=== PATIENT | female | born 1955 | race Caucasian/White ===

== ENCOUNTER 2017-12-04 08:57 | Day surgery (SDC) | payer OTHER ==
[~2017-12-04 08:57] MED LIST: BRIMONIDINE 0.2% OPHTH DROPS 5 ML ONE; BSS/LIDOCAINE/EPINEPHRINE 1 ML SYRINGE ONE; TIMOLOL 0.5% OPHTH DROPS ONE
[2017-12-04] MEDS ORDERED: PHENYLEPHRINE 2.5% OPHTH 2 ML DROPS ONE (09:39)
[2017-12-04] MEDS ORDERED: KETOROLAC 0.45% OPHTH DROPS ONE (09:39)
[2017-12-04] MEDS ORDERED: PROPARACAINE 0.5% OPHTH DROPS 15 ML ONE (09:39)
[2017-12-04] MEDS ORDERED: CYCLOPENTOLATE 1% OPHTH DROPS 2 ML ONE (09:39)
[2017-12-04] MEDS ORDERED: LACTATED RINGERS 500 ML IV ONE (10:00)
[2017-12-04] MEDS ORDERED: KETOROLAC 0.45% OPHTH DROPS LEFTEYE ONE (10:40)
[2017-12-04] MEDS ORDERED: PROPARACAINE 0.5% OPHTH DROPS 15 ML LEFTEYE ONE ×2 (10:40→11:22)
[2017-12-04] MEDS ORDERED: CYCLOPENTOLATE 1% OPHTH DROPS 2 ML LEFTEYE ONE (10:40)
[2017-12-04] MEDS ORDERED: PHENYLEPHRINE 2.5% OPHTH 2 ML DROPS LEFTEYE ONE (10:40)
[2017-12-04] MEDS ORDERED: EPINEPHrine 1 MG/ML AMP IR ONE (11:20)
[2017-12-04] MEDS ORDERED: MIDAZOLAM 2 MG/2 ML VIAL IVP ONE (11:20)
[2017-12-04] MEDS ORDERED: TIMOLOL 0.5% OPHTH DROPS OPTH ONE (11:20)
[2017-12-04] MEDS ORDERED: BRIMONIDINE 0.2% OPHTH DROPS 5 ML OPTH ONE (11:20)
[2017-12-04] MEDS ORDERED: CHONDR SULF/HYALURONATE SYRINGE IO ONE (11:20)
[2017-12-04] MEDS ORDERED: BSS/LIDOCAINE/EPINEPHRINE 1 ML SYRINGE IO ONE ×2 (11:21)
[2017-12-04] MEDS ORDERED: TRIAMCIN/MOXIFLOX/VANCO 1 ML VIAL IO ONE ×2 (11:21)
[2017-12-04 11:41] VITALS: BP 116/66
--- NOTE | 2017-12-04 12:39 | OPERATIVE REPORT ---
DATE OF SERVICE: 12/04/2017 Physician: Haseeb Roblero MD PREOPERATIVE DIAGNOSIS: Visually significant cataract, left eye. This was her first cataract surgery. POSTOPERATIVE DIAGNOSIS: Visually significant cataract, left eye. This was her first cataract surgery. PROCEDURE PERFORMED: Phacoemulsification with posterior chamber intraocular lens implant, left eye. SURGEON: Haseeb Roblero MD ANESTHESIA: Monitored anesthesia care. COMPLICATIONS: None. OPERATIVE INDICATIONS: This is a 62-year-old woman with progressive vision loss in the left eye due to a 2+ nuclear sclerotic cataract. Best corrected visual acuity was 20/50 in the left eye. Indications for surgery were overall decrease in vision, difficulty seeing words, closed captions and game scores on TV, and difficulty seeing street signs. She was consented at length concerning risks and benefits of cataract surgery after which she expressed desire to proceed with surgery. OPERATIVE PROCEDURE: Patient was taken to OR #3 and placed under monitored anesthesia care. Surgical time-out was conducted confirming correct patient, correct procedure and correct surgical site. She was placed under the LenSx laser and the eye docked to the laser interface. The laser performed the capsulotomy, lens softening, phaco wounds and arcuate keratotomy incisions. She was then moved to the operating microscope, given topical anesthesia, and prepped and draped in usual sterile fashion. Eye was entered at the 6 and 3 o'clock positions. Intracameral Shugarcaine was injected into the anterior chamber, followed by Viscoat. The capsulorrhexis flap created by the LenSx laser was removed from the anterior chamber. The nucleus was hydrodissected and phacoemulsified. The cortex was evacuated using automated infusion and aspiration. Provisc was injected in the capsular bag and a 19.5 diopter intraocular lens inserted in the bag. Approximately 0.8 mL of a mixture of triamcinolone, moxifloxacin, and vancomycin was injected subconjunctivally in the superior quadrant for infection and inflammation prophylaxis. I and A was used to evacuate the viscoelastic material. The eye was inflated to physiologic pressure using balanced salt solution and found to be watertight. The patient was taken from the operating room in good condition and given postop instructions. TD: 12/04/2017 12:11
== END 2017-12-04 08:58 | disposition home or self-care (01) ==
LOC: SDS 08:57
PROVIDERS: ATTEND Ophthalmology
PROC: 08RK3JZ Replacement of Left Lens with Synthetic Substitute, Percutaneous Approach (ICD-10-PCS; principal; 2017-12-04 10:00)
DX: H25.12 Age-related nuclear cataract, left eye (principal)
CPT/HCPCS: 66984; A9270; J3490; V2632

== ENCOUNTER 2018-08-10 15:55 | Outpatient (CLI) | payer OTHER ==
--- NOTE | 2018-08-11 11:22 | Mammography Report ---
Reason: SCREENING MAMMOGRAM Procedure Date: 08/10/2018 Accession Number: [id number] / [id number] Procedure: MGN - Screening Mammo Dig Bilat CPT Code: FULL RESULT: EXAM: Screening Mammo Dig Bilat DATE: 08/10/2018 4:13 PM CLINICAL HISTORY: New baseline TECHNIQUE: Bilateral CC and MLO views were obtained. COMPARISON: None FINDINGS: There are scattered fibroglandular densities. No suspicious masses, clustered microcalcifications, or regions of architectural distortion are identified. IMPRESSION: Benign findings RECOMMENDATION: Routine annual screening unless otherwise clinically indicated. BIRADS CATEGORY 2: Benign findings STANDARD QUALIFYING STATEMENTS: 1. This examination was reviewed with the aid of Computer-Aided Detection (CAD). 2. A negative or benign imaging report should not delay biopsy if clinically suspicious findings are present. Consider surgical consultation if warrented. More than 5% of cancers are not identified by imaging. 3. Dense breasts may obscure an underlying neoplasm.
== END 2018-08-10 15:56 | disposition home or self-care (01) ==
LOC: DI.N 15:55
PROVIDERS: ATTEND Nurse Practitioner Family
DX: Z12.31 Encounter for screening mammogram for malignant neoplasm of breast (principal)
CPT/HCPCS: 77067

== ENCOUNTER 2020-11-08 13:17 | Outpatient (CLI) | payer MEDICARE ==
--- NOTE | 2020-11-15 14:58 | Ultrasound Report ---
PROCEDURE: Carotid Doppler Complete INDICATIONS: UNSPECIFIED RETINAL DISORDER TECHNIQUE: Color and pulse Doppler interrogation was performed of both carotid systems, with image documentation and velocity measurements. COMPARISON: None. FINDINGS: Right side: Brachial blood pressure: 145/70 mm Hg. Common carotid artery peak systolic velocity: 111 cm/sec. Internal carotid artery peak systolic velocity: 70 cm/sec. Internal carotid artery end diastolic velocity: 22 cm/sec. External carotid artery peak systolic velocity: 57 cm/sec. ICA/CCA peak systolic ratio: 0.63 . Agee scale imaging description: Mild atherosclerotic plaque noted in the proximal ICA Vertebral artery: Flow direction is antegrade. Left side: Brachial blood pressure: 140/73 mm Hg. Common carotid artery peak systolic velocity: 97 cm/sec. Internal carotid artery peak systolic velocity: 72 cm/sec. Internal carotid artery end diastolic velocity: 27 cm/sec. External carotid artery peak systolic velocity: 74 cm/sec. ICA/CCA peak systolic ratio: 0.74 . Agee scale imaging description: Mild atherosclerotic plaque noted in the proximal ICA Vertebral artery: Flow direction is antegrade. Other: Bilateral heterogenous thyroid nodules measure up to 2.3 x 1.5 on the right and 2.8 x 2.0 cm a nd the left. IMPRESSION: 1. Mild extrahepatic plaque in both proximal internal carotid arteries without hemodynamically signif icant stenosis. 2. Incidental bilateral heterogenous thyroid nodules. Consider further evaluation with dedicated thyr oid ultrasound The estimate of stenosis included in the report of the imaging study was calculated using the NASCET method Reviewed by: Gato Shearer MD on 11/08/2020 3:21 PM PDT Approved by: Gato Shearer MD on 11/08/2020 3:21 PM PDT Station ID: [id number]
== END 2020-11-08 13:18 | disposition home or self-care (01) ==
LOC: DI 13:17
PROVIDERS: ATTEND Nurse Practitioner Family
DX: H35.9 Unspecified retinal disorder (principal); I65.23 Occlusion and stenosis of bilateral carotid arteries
CPT/HCPCS: 93880

== ENCOUNTER 2020-11-27 13:55 | Outpatient (CLI) | payer MEDICARE ==
--- NOTE | 2020-11-28 13:17 | Mammography Report ---
BILATERAL DIGITAL SCREENING MAMMOGRAM 3D/2D: 11/27/2020 CLINICAL: Routine screening. Comparison is made to exam dated: 08/10/2018 mammogram - . The tissue of both breasts is predominantly fatty. No significant masses, calcifications, or other findings are seen in either breast. There has been no significant interval change. IMPRESSION: NEGATIVE There is no mammographic evidence of malignancy. A 1 year screening mammogram is recommended. This exam was interpreted at Station ID: [id number]. NOTE: For mammograms, a report in lay terms will be sent to the patient. Approximately 15% of breast malignancies will not be visualized mammographically. In the management of a palpable breast mass, a negative mammogram must not discourage biopsy of a clinically suspicious lesion. Electronically Signed By: Sajan Morgan M.D., jr/radha:11/27/2020 15:00:56 ACR BI-RADS Category 1: Negative 3341F PARENCHYMAL PATTERN: (F) - The breast(s) demonstrate(s) diffuse fatty replacement. BI-RADS CATEGORY: (1) - 1 RECOMMENDATION: (ANNUAL) - Recommend routine annual screening mammography. [id number] 1 year screening LATERALITY: (B)
== END 2020-11-27 13:56 | disposition home or self-care (01) ==
LOC: DI 13:55
PROVIDERS: ATTEND Nurse Practitioner Family
DX: Z12.31 Encounter for screening mammogram for malignant neoplasm of breast (principal)

== ENCOUNTER 2020-11-27 13:58 | Outpatient (CLI) | payer MEDICARE ==
--- NOTE | 2020-11-27 16:51 | Ultrasound Report ---
PROCEDURE: Head or Neck Soft Tissue INDICATIONS: NONTOXIC MULTINODULAR GOITER TECHNIQUE: Real-time scanning was performed of the thyroid gland, with image documentation. COMPARISON: Carotid ultrasound 11/08/2020 FINDINGS: Right: Thyroid lobe measures 5.6 x 1.7 x 2.0 cm, and is homogeneous in echotexture. Left: Thyroid lobe measures 4.9 x 1.7 x 2.4 cm, and is homogenous in echotexture. Isthmus: 4 mm thick. Nodule number: One Location: Right mid posterior lateral Size: 2.3 x 1.2 x 1.3 cm. Composition: Predominant solid Echogenicity: Hypoechoic Shape: wider than tall. Margins: Smooth Echogenic foci: None Total points: 4 ACR TI-RADS category: 4 Nodule number: Two Location: Right inferior medial Size: 0.4 x 0.4 x 0.4 cm. Composition: Solid Echogenicity: Hypoechoic Shape: wider than tall. Margins: Smooth Echogenic foci: None Total points: 4 ACR TI-RADS category: 4 Nodule number: Three Location: Left superior Size: 3.0 x 1.5 x 2.3 cm. Composition: Predominantly solid Echogenicity: Hypoechoic Shape: wider than tall. Margins: Smooth Echogenic foci: None Total points: 4 ACR TI-RADS category: 4 IMPRESSION: 1. Lesions 1 and 3 are considered category 4. Secondary to size, fine-needle aspiration is recommende d, as below. 2. Lesion 2 is considered category 4. Secondary to small size, no additional follow-up is recommended as below. ACR TI-RADS definitions and recommendations: TI-RADS 1 (benign): 0 points. FNA not needed. TI-RADS 2 (not suspicious): 2 points. FNA not needed. TI-RADS 3 (mildly suspicious): 3 points. ? FNA if 2.5 cm or larger, follow up if 1.5 cm or larger (at 1, 3, and 5 years). TI-RADS 4 (moderately suspicious): 4-6 points. ? FNA if 1.5 cm or larger, follow up if 1 cm or larger (at 1, 2, 3, and 5 years). TI-RADS 5 (highly suspicious): 7 points or more. ? FNA if 1 cm or larger, follow up if 0.5 cm or larger (every year for 5 years). ? FNA: no more than 2 nodules with the highest TI-RADS scores. Reviewed by: Tiffanie Vazquez MD on 11/27/2020 4:50 PM PDT Approved by: Tiffanie Vazquez MD on 11/27/2020 4:50 PM PDT Station ID: [id number]
== END 2020-11-27 13:59 | disposition home or self-care (01) ==
LOC: DI 13:58
PROVIDERS: ATTEND Nurse Practitioner Family
DX: E04.2 Nontoxic multinodular goiter (principal); Z13.820 Encounter for screening for osteoporosis

== ENCOUNTER 2020-12-28 14:03 | Outpatient (CLI) | payer MEDICARE ==
[~2020-12-28 14:03] MED LIST changes: -BRIMONIDINE 0.2% OPHTH DROPS 5 ML ONE; -BSS/LIDOCAINE/EPINEPHRINE 1 ML SYRINGE ONE; +BUFFERED LIDOCAINE 10 ML SYRINGE ONE; -TIMOLOL 0.5% OPHTH DROPS ONE
[2020-12-28] MEDS: BUFFERED LIDOCAINE 10 ML SYRINGE IU ONE (15:08)
--- NOTE | 2020-12-28 17:52 | Ultrasound Report ---
PROCEDURE: FNA Bx w/US Gnd 1st les INDICATIONS: NONTOXIC MULTINODULAR GOITER TECHNIQUE: The indications, alternatives, benefits, risks, and complications of the procedure were explained to the patient. Written informed consent was obtained and placed in the chart. The area of interest wa s examined sonographically and a site was chosen for ultrasound guided percutaneous sampling. The sk in was prepared and draped in the usual fashion, and anesthetized with 1% lidocaine infiltrated from the skin down to the lesion. Multiple passes were then performed, with contents emptied into an appr [facility] pathology specimen container. A bandage was applied to the area of access at completion of t he study. COMPARISON: 11/27/2020. FINDINGS: Location(s) of lesion(s) sampled: Right thyroid lobe nodule (nodule 1) [place]: 25 gauge hypodermic needles. Number of passes: 6 Medications: 1% lidocaine for local anaesthesia. Complications: None. IMPRESSION: Successful ultrasound-guided right thyroid nodule fine needle aspiration, with cytology results pendmarlin jackson. Reviewed by: Katie Rowan MD, PhD on 12/28/2020 5:51 PM PDT Approved by: Katie Rowan MD, PhD on 12/28/2020 5:51 PM PDT Station ID: [id number]
--- NOTE | 2020-12-28 17:57 | Ultrasound Report ---
PROCEDURE: FNA Bx w/US Gdn Ea Addl INDICATIONS: NONTOXIC MULTINODULAR GOITER TECHNIQUE: The indications, alternatives, benefits, risks, and complications of the procedure were explained to the patient. Written informed consent was obtained and placed in the chart. The area of interest wa s examined sonographically and a site was chosen for ultrasound guided percutaneous sampling. The sk in was prepared and draped in the usual fashion, and anesthetized with 1% lidocaine infiltrated from the skin down to the lesion. Multiple passes were then performed, with contents emptied into an appr [facility] pathology specimen container. A bandage was applied to the area of access at completion of t he study. COMPARISON: 11/27/2020. FINDINGS: Location(s) of lesion(s) sampled: Left thyroid nodule (nodule 3) [place]: 25 gauge hypodermic needles. Number of passes: 6 Medications: 1% lidocaine for local anaesthesia. Complications: None. IMPRESSION: Successful ultrasound-guided left thyroid nodule fine needle aspiration, with cytology results pao bob Reviewed by: Katie Rowan MD, PhD on 12/28/2020 5:55 PM PDT Approved by: Katie Rowan MD, PhD on 12/28/2020 5:55 PM PDT Station ID: [id number]
== END 2020-12-28 14:04 | disposition home or self-care (01) ==
LOC: DI 14:03
PROVIDERS: ATTEND Nurse Practitioner Family
DX: E04.2 Nontoxic multinodular goiter (principal)
CPT/HCPCS: 10005; 10006

== ENCOUNTER 2022-08-16 08:00 | Outpatient (CLI) | payer MEDICARE | END 2022-08-16 23:59 | disposition home or self-care (01) | LOC: LAB.N 08:00 | PROVIDERS: ATTEND Family Medicine | DX: R30.0 Dysuria (principal) | CPT/HCPCS: 87086; 87181 ==